=== PATIENT | male | born 1960 | race African-American/Black ===

== ENCOUNTER 2017-10-31 18:27 | Observation (INO) | payer MEDICAID, OTHER ==
[~2017-10-31] VITALS: Ht 162.6 cm; Wt 102.1 kg
[2017-10-31 19:31] LABS: Basophils # (auto) 0.1 uL; Basophils % (auto) 0.6 % (0.0-2.0); Eosinophils # (auto) 0 uL; Eosinophils % (auto) 0.1 % (0.0-7.0); Hematocrit 45.3 % (41.0-53.0); Hemoglobin 15.1 g/dL (13.5-17.5); Lymphocytes # (auto) 1.3 uL; Lymphocytes % (auto) 12.4 % (10.0-50.0); Mean Corpuscular Hemoglobin 33.1 pg (28.0-32.0); Mean Corpuscular Hgb Conc. 33.4 g/dL (32.0-36.0); Mean Corpuscular Volume 99.1 fL (80.0-100.0); Monocytes # (auto) 0.8 uL; Monocytes % (auto) 7.6 % (0.0-12.0); Neutrophils # (auto) 8.3 uL; Neutrophils % (auto) 79.3 % (37.0-80.0); Platelet Count (auto) 195 10^3/uL (140-450); Red Blood Cells 4.57 10^6/uL (4.5-5.90); Red Cell Distribution Width 13.6 % (11.8-14.3); White Blood Cell 10.5 10^3/uL (4.4-10.8)
[2017-10-31 19:54] LABS: Alanine Aminotransferase 20 U/L (16-61); Alkaline Phosphatase 52 U/L (45-117); Anion Gap 10 (5-15); Aspartate Aminotransferase 19 U/L (15-37); BUN/Creatinine Ratio 8.8; Bilirubin, Total 0.9 mg/dL (0.2-1.0); Blood Urea Nitrogen 12 mg/dL (7-18); Calcium 8.8 mg/dL (8.5-10.1); Carbon Dioxide 26 mmol/L (21-32); Chloride 104 mmol/L (98-107); GFR African American 69 mL/min; GFR Non-African American 57 mL/min; Glucose 156 mg/dL (74-106); Potassium 3.4 mmol/L (3.5-5.1); Sodium 140 mmol/L (136-145)
[2017-10-31 22:14] VITALS: BP 130/81
[2017-10-31] MEDS ORDERED: SODIUM CHLORIDE 0.9% 1,000 ML IV ONE (22:45)
== END 2017-10-31 23:01 | disposition home or self-care (01) | DRG 861 ==
LOC: ER 18:27 → OVERFLOW 20:10 → ER 23:01
PROVIDERS: ADMIT Emergency Medicine; ATTEND Emergency Medicine
DX: R41.82 Altered mental status, unspecified (principal); G92 Toxic encephalopathy; I51.7 Cardiomegaly
CPT/HCPCS: 36415; 70450; 71045; 80053; 80320; 82962; 84484; 85025; 93005; 99285; G0378; J7030

== ENCOUNTER 2018-06-02 12:32 | Emergency (ER) | payer MEDICAID ==
[~2018-06-02] VITALS: Ht 162.6 cm; Wt 95.3 kg
[2018-06-02 12:57] VITALS: BP 126/73
[2018-06-02] MEDS ORDERED: KETOROLAC TROMETH 60MG/2ML VIAL IM ONE (13:30)
== END 2018-06-02 14:58 | disposition home or self-care (01) ==
LOC: ER 12:32
DX: S16.1XXA Strain of muscle, fascia and tendon at neck level, initial encounter (principal); S39.012A Strain of muscle, fascia and tendon of lower back, initial encounter; V49.49XA Driver injured in collision with other motor vehicles in traffic accident, initial encounter; Y93.89 Activity, other specified; Y99.8 Other external cause status; Y92.89 Other specified places as the place of occurrence of the external cause
CPT/HCPCS: 72040; 96372; 99283; J1885

== ENCOUNTER 2019-08-09 16:54 | Emergency (ER) | payer MEDICAID ==
[~2019-08-09] VITALS: Ht 162.6 cm; Wt 81.6 kg
[2019-08-09 17:19] VITALS: BP 138/95
== END 2019-08-09 18:35 ==
LOC: ER 16:54
DX: Z04.1 Encounter for examination and observation following transport accident (principal); I10 Essential (primary) hypertension; F14.10 Cocaine abuse, uncomplicated; V49.69XA Unspecified car occupant injured in collision with other motor vehicles in traffic accident, initial encounter; Y93.89 Activity, other specified; Y99.8 Other external cause status; Y92.89 Other specified places as the place of occurrence of the external cause

== ENCOUNTER → 2019-10-04 | Emergency (ER) | payer MEDICAID, OTHER ==
[~2019-10-04] VITALS: Ht 172.7 cm; Wt 104.3 kg
[~2019-10-04] MED LIST: EPINEPHrine HCL 1 MG/10 ML SYRG IV ONE
[2019-10-04 07:36] VITALS: BP 123/100
== END | disposition expired ==
LOC: EDUNIT# 07:29 → ER 07:29 → EDBD 07:29
DX: S06.890A Other specified intracranial injury without loss of consciousness, initial encounter (principal); R41.82 Altered mental status, unspecified; S01.01XA Laceration without foreign body of scalp, initial encounter; S01.81XA Laceration without foreign body of other part of head, initial encounter; S29.8XXA Other specified injuries of thorax, initial encounter; S39.91XA Unspecified injury of abdomen, initial encounter; V03.99XA Pedestrian with other conveyance injured in collision with car, pick-up truck or van, unspecified whether traffic or nontraffic accident, initial encounter; Y93.89 Activity, other specified; Y99.8 Other external cause status; Y92.89 Other specified places as the place of occurrence of the external cause
CPT/HCPCS: 31500; 86850; 86900; 86901; 86920; 92950; 99291; J0171; P9016